=== PATIENT | male | born 1975 | race Caucasian/White ===

== ENCOUNTER → 2020-05-16 | Outpatient (CLI) | payer OTHER ==
[~2020-05-16] MED LIST: HYDROCODONE-AP1 EAC6 PO; LEVAQUIN 500 M500 M2 PO; LOTRISONE CREAM15 GM TP; NOHOMEMEDICATIONS; PERCOCET 5-3251 EACH PO; ZOFRAN ODT4 MG PO
== END ==
LOC: M.ULTRA 15:00 → M.CT 15:27
PROVIDERS: ATTEND Nurse Practitioner Family
DX: N20.0 Calculus of kidney (principal); M54.16 Radiculopathy, lumbar region; K42.0 Umbilical hernia with obstruction, without gangrene; J84.10 Pulmonary fibrosis, unspecified; K38.8 Other specified diseases of appendix

== ENCOUNTER 2020-09-17 14:14 | Emergency (ER) | payer OTHER ==
[~2020-09-17] VITALS: Ht 180.3 cm; Wt 113.4 kg
[2020-09-17 14:51] LABS: ABSOLUTE BASOPHILS 0.1 thou/uL (0.0-0.2); ABSOLUTE LYMPHOCYTES 2.7 thou/uL (0.8-5.3); ABSOLUTE MONOCYTES 1.3 thou/uL (0.0-1.2); ABSOLUTE NEUTROPHILS 11.3 thou/uL (1.6-8.1); BASOPHILS 0.8 %; EOSINOPHILS 0.1 %; HEMATOCRIT 44.8 % (42.0-52.0); HEMOGLOBIN 14.9 gm/dL (14.0-18.0); LYMPHOCYTES 17.8 %; MCH 31.3 pg (26.0-34.0); MCHC 33.4 g/dL (28.0-37.0); MCV 93.9 fL (80.0-100.0); MONOCYTES 8.3 %; MPV 7.4 fl. (7.2-11.1); NUCLEATED RBCS 0 /100WBC; PLATELET COUNT* 448 thou/uL (150-400); RBC 4.77 mil/uL (4.50-6.00); RDW-CV 12.7 % (10.5-14.5); WBC 15.4 thou/uL (4.0-11.0)
[2020-09-17 15:11] LABS: CALCIUM 9.9 mg/dL (8.5-10.1); CREATININE 1.1 mg/dL (0.6-1.3); POTASSIUM 3.7 mmol/L (3.5-5.1)
[2020-09-17 15:15] LABS: ALBUMIN 4.4 g/dL (3.4-5.0); TOTAL BILIRUBIN 0.4 mg/dL (<0.1-1.0); TOTAL PROTEIN 8.1 g/dL (6.4-8.2)
[2020-09-17 16:53] LABS: URINE BILIRUBIN NEGATIVE (Negative); URINE BLOOD 3+ (Negative); URINE CLARITY CLEAR; URINE COLOR YELLOW; URINE GLUCOSE-RANDOM NEGATIVE (Negative); URINE KETONES 1+ (Negative); URINE LEUKOCYTES-REFLEX NEGATIVE (Negative); URINE NITRITE-REFLEX NEGATIVE (Negative); URINE PROTEIN TRACE (Negative); URINE SPECIFIC GRAVITY <= 1.005 (1.005-1.030); URINE UROBILINOGEN 0.2 E.U./dl (0.2-1.0)
[2020-09-17 17:02] LABS: BACTERIA-REFLEX None Seen /HPF (None Seen); MUCUS None Seen strn/LPF (None Seen); SQUAMOUS NONE SEEN /LPF (0-3)
[2020-09-17 17:03] LABS: CASTS None Seen /LPF (None Seen); CRYSTALS None Seen /LPF (None Seen); URINE WBC-REFLEX None Seen /HPF (0-5)
[2020-09-17] MEDS ORDERED: NORCO5 PO (17:28)
[2020-09-17] MEDS ORDERED: CIPRO500 M1 PO (17:28)
[2020-09-17] MEDS ORDERED: ZOFRAN ODT4 MG PO (17:28)
[2020-09-17] MEDS ORDERED: IBUPROFEN 800800 M1 PO (17:28)
[2020-09-17] MEDS ORDERED: FLOMAX0.4 MG PO (17:28)
[2020-09-17 17:59] VITALS: BP 125/65
--- NOTE | 2020-09-18 11:15 | EKG ---
[place] [address] ELECTROCARDIOGRAM REPORT Name: SAM BROWER Room: [facility]#: [id number] Admission: 09/17/20 Attend Phys: Discharge: 09/17/20 Date of : 79 Date of Service: 09/17/20 1433 Report #: [id number] THIS REPORT FOR: //name// [facility] ED Test Date: 2020-09-17 Test Time: 14:33:11 Pat Name: SAM BROWER Department: Room: Gender: [employer] Commanding Officer: DSAkua : 1975 Requested By: Sylvia Crooks Order Number: [id number] MD: Akira Alcantara Measurements Intervals Kathryn Rate: 68 P: 16 MT: 126 QRS: 54 QRSD: 120 T: 33 QT: 401 QTc: 427 Interpretive Statements Sinus rhythm IVCD, consider atypical RBBB ST elev, probable normal early repol pattern Compared to ECG 08/22/2015 09:03:06 no change Electronically Signed On 09-18-2020 11:15:36 CDT by Akira Alcantara [email or web address] <ELECTRONICALLY SIGNED> By: Akira Alcantara MD, [facility] 09/18/20 1115 1433 1433 Akira Alcantara MD, [facility] /EPI
== END 2020-09-17 18:00 | disposition home or self-care (01) ==
LOC: M.ERS 14:14
PROVIDERS: Nurse Practitioner Family
DX: N20.1 Calculus of ureter (principal); R11.2 Nausea with vomiting, unspecified; Z87.442 Personal history of urinary calculi